=== PATIENT | female | born 1995 | race Caucasian/White ===

== ENCOUNTER 2018-10-24 17:51 | Emergency (ER) | payer SELFPAY ==
--- NOTE | 2018-10-24 18:35 | ER Document Report ---
ED Medical Screen (RME) - General Chief Complaint: Vaginal Bleeding Stated Complaint: VAGINAL BLEEDING/CRAMPING Time Seen by Provider: 10/24/18 18:32 Mode of Arrival: Ambulatory Information source: Patient Notes: This is a 22-year-old female with no significant medical problems, 1 para 0 presents to the emergency room with vaginal bleeding and some cramping. - HPI Onset: Yesterday Onset/Duration: Gradual Quality of pain: Cramping Severity: Mild Pain Level: Denies Associated Symptoms: denies: Chest pain, Shortness of breath Exacerbated by: Denies Relieved by: Denies Similar symptoms previously: No Recently seen / treated by doctor: No - Related Data Smoking: Non-smoker Frequency of alcohol use: None Drug Abuse: None Allergies/Adverse Reactions: No Known Allergies Allergy (Unverified 10/24/18 17:53) Past Medical History - General Information source: Patient - Social History Cigarette use (# per day): No Chew tobacco use (# tins/day): No Frequency of alcohol use: None Drug Abuse: None Lives with: Family Family history: None - Medical History Medical History: Negative Renal/ Medical History: Denies: Hx Peritoneal Dialysis Surgical Hx: Negative Review of Systems - Review of Systems Constitutional: denies: Chills, Fever EENT: No symptoms reported Cardiovascular: No symptoms reported Respiratory: No symptoms reported Gastrointestinal: No symptoms reported Genitourinary: No symptoms reported Female Genitourinary: See HPI Musculoskeletal: No symptoms reported Skin: No symptoms reported Hematologic/Lymphatic: No symptoms reported Neurological/Psychological: No symptoms reported Physical Exam - Vital signs Vitals: Temp Pulse Resp BP Pulse Ox 99.1 F 86 16 125/60 97 10/24/18 18:07 10/24/18 18:07 10/24/18 18:07 10/24/18 18:07 10/24/18 18:07 Notes: Physical exam: GENERAL: 22-year-old female, alert and oriented x3, no acute distress HEAD: Atraumatic, normocephalic. EYES: Pupils equal round and reactive to light, extraocular movements intact, sclera anicteric, conjunctiva are normal. ENT: Moist mucous membranes. NECK: Normal range of motion, supple without obvious mass or JVD. LUNGS: Breath sounds clear to auscultation bilaterally and equal. No wheezes rales or rhonchi. HEART: Regular rate and rhythm without murmurs, rubs or gallops. ABDOMEN: Soft, normoactive bowel sounds. No tenderness to palpation. No guarding, no rebound. No masses appreciated. Pelvic: Deferred (patient getting transvaginal ultrasound). EXTREMITIES: Normal range of motion, no pitting or edema. No clubbing or cyanosis. NEUROLOGICAL: Cranial nerves II through XII grossly intact. Normal speech, moving all extremities. PSYCH: Normal mood, normal affect. SKIN: Warm, Dry, normal turgor, no rashes or lesions noted. Course - Vital Signs Vital signs: Temp Pulse Resp BP Pulse Ox 99.1 F 86 16 125/60 97 10/24/18 18:07 10/24/18 18:07 10/24/18 18:07 10/24/18 18:07 10/24/18 18:07 - Laboratory Laboratory results interpreted by me: 10/24/18 18:44 Urine Ketones TRACE H Urine Blood LARGE H - Diagnostic Test Radiology reviewed: Image reviewed, Reports reviewed - Ultrasound shows a living intrauterine : 6 weeks, 2 days old. The heartbeat is 107. The cervix is closed. Doctor's Discharge - Discharge Clinical Impression: Vaginal bleeding in early Condition: Stable Disposition: HOME, SELF-CARE Instructions: Bleeding During Early ([facility]) Additional Instructions: As we discussed, the ultrasound shows an intrauterine live : The baby's heartbeat was 107. Given that you have had some vaginal bleeding, we often call this a threatened miscarriage. For this reason, I want you to take it easy over the next week or 2. Avoid heavy lifting, avoid intercourse. Its important to follow-up with your OB doctor: You can bring a copy of today's ultrasound report as well as the lab tests with you. Your blood type today was O+. Return to the emergency room for worsening cramping, worsening bleeding or any concerns or getting worse.
--- NOTE | 2018-10-24 19:42 | RADIOLOGY REPORT (SQ) ---
EXAM DESCRIPTION: U/S OB TRANSVAGINAL W/O DOP COMPLETED DATE/TIME: 10/24/2018 7:27 pm REASON FOR STUDY: approx 6 weeks preg, vag bleed COMPARISON: None. TECHNIQUE: Transvaginal static and realtime grayscale images acquired of the pelvis. Additional danny cted spectral and color Doppler images recorded. All images stored on PACs. bHCG: Pending. CLINICAL DATES: 6 weeks 1 day LIMITATIONS: None. FINDINGS: FETUS: Single Living intrauterine . ULTRASOUND EGA: 6 weeks 2 days ULTRASOUND VALERIA: 06/17/2019 EFW: Not applicable less than 20 weeks. CRL: 5 mm FHR: 107 beats per minute. AMNIOTIC FLUID: Adequate amount. PLACENTA: Not yet developed due to early gestation. SUBCHORIONIC BLEED: No. SIZE OF BLEED: Not applicable. UTERUS: No masses. No anomalies. CERVICAL LENGTH: 3.1 cm Closed. RIGHT ADNEXA: Normal ovary with normal vascular flow. No adnexal free fluid. No adnexal masses. LEFT ADNEXA: Normal ovary with normal vascular flow. No adnexal free fluid. No adnexal masses. FREE FLUID: None. OTHER: No other significant finding. IMPRESSION: LIVING INTRAUTERINE . EGA 6 weeks 2 days Trimester of : First - 0 to 13 weeks. TECHNICAL DOCUMENTATION: JOB ID: [id number] [place]-72 2010 [employer]- All Rights Reserved Reading location - IP/workstation name: [email or web address]
[2018-10-24 19:50] LABS: APPEARANCE,URINE SLIGHTLY-CLOUDY; BILIRUBIN,URINE NEGATIVE (NEGATIVE); COLOR,URINE STRAW; GLUCOSE, URINE NEGATIVE (NEGATIVE); KETONES,URINE TRACE mg/dL (NEGATIVE); LEUKOCYTE ESTERASE,URINE NEGATIVE (NEGATIVE); NITRITE,URINE NEGATIVE (NEGATIVE); PROTEIN,URINE NEGATIVE (NEGATIVE); URINE SPECIFIC GRAVITY 1.012; UROBILINOGEN,URINE NEGATIVE mg/dL (<2.0)
[2018-10-24 20:37] VITALS: BP 106/85
== END 2018-10-24 20:37 | disposition home or self-care (01) ==
LOC: ER 17:51
DX: O46.91 Antepartum hemorrhage, unspecified, first trimester (principal); O26.891 Other specified pregnancy related conditions, first trimester; R10.9 Unspecified abdominal pain; Z3A.01 Less than 8 weeks gestation of pregnancy
CPT/HCPCS: 36415; 76817; 81001; 84702; 86900; 86901; 87086; 99284

== ENCOUNTER 2018-12-03 11:44 | Emergency (ER) | payer OTHER, MEDICAID ==
--- NOTE | 2018-12-03 12:31 | ER Document Report ---
ED General - General Chief Complaint: Vaginal Bleeding Stated Complaint: VAGINAL BLEEDING Time Seen by Provider: 12/03/18 12:25 TRAVEL OUTSIDE OF THE [place] IN LAST 30 DAYS: No - HPI Notes: Patient is a 23-year-old female approximately 11-1/2 weeks who presents to the emergency department complaining of intermittent pelvic cramping and vaginal bleeding over the past 2 days. She is still eating and drinking without difficultly. She is urinating normally and having normal bowel movements. Denies drug allergies. No surgical history to her abdomen. No other vaginal discharge or odor. No concern of STD or STI. No other concerns or complaints. Denies any headache, fever, URI, sore throat, chest pain, palpitations, syncope, cough, shortness of breath, wheeze, dyspnea, nausea/vomit ing/diarrhea, urinary retention, dysuria, hematuria, back pain, or rash. - Related Data Allergies/Adverse Reactions: No Known Allergies Allergy (Verified 12/03/18 11:45) Past Medical History - Social History Smoking Status: Never Smoker Family History: Reviewed & Not Pertinent Renal/ Medical History: Denies: Hx Peritoneal Dialysis Review of Systems - Review of Systems -: Yes All other systems reviewed and negative Physical Exam - Vital signs Vitals: Temp Pulse Resp BP Pulse Ox 98.7 F 86 16 127/60 H 98 12/03/18 11:55 12/03/18 11:55 12/03/18 11:55 12/03/18 11:55 12/03/18 11:55 - Notes Notes: PHYSICAL EXAMINATION: GENERAL: Well-appearing, well-nourished and in no acute distress. LUNGS: Breath sounds clear to auscultation bilaterally and equal. No wheezes rales or rhonchi. HEART: Regular rate and rhythm without murmurs, rubs, gallops. ABDOMEN: Soft, nontender, nondistended abdomen. No guarding, no rebound. No masses appreciated. Normal bowel sounds present. No CVA tenderness bilaterally. : Deferred at this time Musculoskeletal: FROM to passive/active. Strength 5+/5. Extremities: No cyanosis, clubbing, or edema b/l. Peripheral pulses 2+. Capillary refill less than 3 seconds. NEUROLOGICAL: Normal speech, normal gait. PSYCH: Normal mood, normal affect. SKIN: Warm, Dry, normal turgor, no rashes or lesions noted. Course - Re-evaluation Re-evalutation: 12/03/18 15:05 Patient is an afebrile, well-hydrated, 23-year-old female who presents to the ED with bleeding in early and subsequent failed as there are no heart tones and her hCG quantitative is significantly decreased from previous. Vitals are acceptable without any significant tachycardia, tachypnea, or hypoxia. PE is otherwise unremarkable. CBC unremarkable. UA unremarkable. Patient does not need RhoGam based on blood bank history at previous visit. Patient is nontoxic-appearing is tolerating p.o. without any difficulties. No other labs or imaging warranted at this time based on H&P. Low suspicion/risk for acute appendicitis, bowel obstruction, acute cholecystitis, acute cholangitis, perforated diverticulitis, incarcerated hernia, pancreatitis, perforated ulcer, peritonitis, sepsis, pelvic inflammatory disease, ectopic , tubo-ovarian abscess, ovarian torsion, or other systemic emergent condition at this time. Patient is aware that her condition can change from initial presentation and she needs to monitor symptoms closely and seek medical attention if any acute changes. Recheck with your PCM/OBGYN in 3-5 days. Return to the ED with any worsening/concerning symptoms otherwise as reviewed in discharge. Patient is in agreement. - Vital Signs Vital signs: Temp Pulse Resp BP Pulse Ox 98.7 F 86 16 127/60 H 98 12/03/18 11:55 12/03/18 11:55 12/03/18 11:55 12/03/18 11:55 12/03/18 11:55 - Laboratory Result Diagrams: 12/03/18 13:02 Laboratory results interpreted by me: 12/03/18 12/03/18 12:15 13:02 Beta HCG, Quant 7881.60 H Urine Blood LARGE H Discharge - Discharge Clinical Impression: demise Condition: Stable Disposition: HOME, SELF-CARE Additional Instructions: Maintain fluid intake Proper hygienic technique Keep the skin clean Tylenol/ibuprofen as needed F/u with your PCM/OBGYN in 3-5 days for a recheck Return to the ED with any development of GOWDIN/fever, trouble with vision, eye redness, worsening pain, urethral discharge, urinary retention, blood in the urine, flank pain, abdominal pain, n/v, Chest Pain, shortness of breath, joint pains, trouble breathing, or any other worsening/concerning symptoms as needed otherwise. Forms: Elevated Blood Pressure Referrals: [facility] [Provider Group] - Follow up in 3-5 days
[2018-12-03 13:21] LABS: ABSOLUTE EOSINOPHILS # (AUTO) 0.1 10^3/uL (0.0-0.6); ABSOLUTE LYMPHOCYTES (AUTO) 2.1 10^3/uL (0.5-4.7); ABSOLUTE MONOCYTES (AUTO) 0.5 10^3/uL (0.1-1.4); BASOPHILS % (AUTO) 0.5 % (0-2); EOSINOPHILS % (AUTO) 1.7 % (0-6); HEMATOCRIT 36.8 % (36.0-47.0); HEMOGLOBIN 12.8 g/dL (12.0-15.5); LYMPHOCYTES % (AUTO) 26.9 % (13-45); MEAN CORPUSCULAR HEMOGLOBIN 29.6 pg (27.0-33.4); MEAN CORPUSCULAR HGB CONC 34.9 g/dL (32.0-36.0); MEAN CORPUSCULAR VOLUME 85 fl (80-97); MONOCYTES % (AUTO) 6.6 % (3-13); PLATELET COUNT 302 10^3/uL (150-450); RED BLOOD COUNT 4.34 10^6/uL (3.72-5.28); RED CELL DISTRIBUTION WIDTH 13.1 % (11.5-14.0); SEGMENTED NEUTROPHILS % (AUTO) 64.3 % (42-78); TOTAL CELLS COUNTED % (AUTO) 100 %; WHITE BLOOD COUNT 7.8 10^3/uL (4.0-10.5)
[2018-12-03 13:26] LABS: APPEARANCE,URINE SLIGHTLY-CLOUDY; BILIRUBIN,URINE NEGATIVE (NEGATIVE); COLOR,URINE YELLOW; GLUCOSE, URINE NEGATIVE (NEGATIVE); KETONES,URINE NEGATIVE (NEGATIVE); LEUKOCYTE ESTERASE,URINE NEGATIVE (NEGATIVE); NITRITE,URINE NEGATIVE (NEGATIVE); PROTEIN,URINE NEGATIVE (NEGATIVE); URINE SPECIFIC GRAVITY 1.017; UROBILINOGEN,URINE NEGATIVE mg/dL (<2.0)
--- NOTE | 2018-12-03 14:51 | RADIOLOGY REPORT (SQ) ---
EXAM DESCRIPTION: U/S OB TRANSVAGINAL W/O DOP COMPLETED DATE/TIME: 12/03/2018 2:35 pm REASON FOR STUDY: 12wks preg, bleeding/cramping COMPARISON: 10/24/2018 TECHNIQUE: Transvaginal and transabdominal static and realtime grayscale images acquired of the pelv is. Additional selected spectral and color Doppler images recorded. All images stored on PACs. [facility] [place] CLINICAL DATES: 11 weeks, 6 days LIMITATIONS: None. FINDINGS: FETUS: Single Living intrauterine . ULTRASOUND EGA: 6 weeks, 4 days ULTRASOUND VALERIA: 07/21/2019 CRL: 0.68 cm FHR: Not visualized. SUBCHORIONIC BLEED: Small subchorionic hemorrhage measuring 1.3 x 0.7 x 1.5 cm. UTERUS: No masses. No anomalies. CERVICAL LENGTH: 2.0 cm. Fluid is present in the endocervical canal. RIGHT ADNEXA: Normal ovary with normal vascular flow. No adnexal free fluid. No adnexal masses. LEFT ADNEXA: Normal ovary with normal vascular flow. No adnexal free fluid. No adnexal masses. FREE FLUID: None. OTHER: No other significant finding. IMPRESSION: Single intrauterine gestation at sonographic gestational age of 6 weeks, 4 days, without heart tones identified. heart tones were identified on prior examination dated 10/24/2018 . Findings consistent with failed early . Trimester of : First - 0 to 13 weeks. TECHNICAL DOCUMENTATION: JOB ID: [id number] [employer]- All Rights Reserved rev Reading location - IP/workstation name: [email or web address]
[2018-12-03 15:10] VITALS: BP 128/78
== END 2018-12-03 15:25 | disposition home or self-care (01) ==
LOC: ER 11:44
DX: O36.4XX0 Maternal care for intrauterine death, not applicable or unspecified (principal); Z3A.11 11 weeks gestation of pregnancy
CPT/HCPCS: 36415; 76817; 81001; 84702; 85025; 99284

== ENCOUNTER 2018-12-06 03:16 | Emergency (ER) | payer OTHER, MEDICAID ==
[2018-12-06] MEDS ORDERED: NORMAL SALINE 1000 ML 1,000 ML IV PRN (04:32)
[2018-12-06] MEDS ORDERED: DICYCLOMINE HCL INJ 20 MG/2 ML AMPULE IM ONE (04:34)
--- NOTE | 2018-12-06 05:47 | RADIOLOGY REPORT (SQ) ---
EXAM DESCRIPTION: US TRANSVAGINAL COMPLETED DATE/TME: 12/06/2018 04:31 CLINICAL HISTORY: 23 years, Female, retained products of conception COMPARISON: None. TECHNIQUE: Transverse and longitudinal transvaginal sonographic images of the pelvis LIMITATIONS: None. FINDINGS: The uterus measures 10.2 x 5.1 x 6.0 cm. Endometrium measures 17 mm in thickness with a complex appearance. There is fluid and what is likely blood products in the endocervical canal. The right ovary measures 2 x 2 x 2 cm, the left 2 x 1 x 2 cm. Arterial and venous flow to each ovary. No adnexal cyst or mass. No free fluid. IMPRESSION: Mild distention of the endocervical canal with fluid and debris, likely blood products within it. Retained products of conception not excluded copyright 2010 [email or web address]- All Rights Reserved
[2018-12-06] MEDS ORDERED: KETOROLAC TROMETHAMINE INJ/PF 30 MG/1 ML SDV IV ONE (06:02)
[2018-12-06] MEDS: NORMAL SALINE 1000 ML 1,000 ML IV PRN ×2 (06:05→06:50)
[2018-12-06 06:16] LABS: ABSOLUTE BASOPHILS # (AUTO) 0.1 10^3/uL (0.0-0.2); ABSOLUTE EOSINOPHILS # (AUTO) 0.1 10^3/uL (0.0-0.6); ABSOLUTE LYMPHOCYTES (AUTO) 1.6 10^3/uL (0.5-4.7); ABSOLUTE MONOCYTES (AUTO) 0.6 10^3/uL (0.1-1.4); ABSOLUTE NEUT (AUTO) 10.5 10^3/uL (1.7-8.2); BASOPHILS % (AUTO) 0.5 % (0-2); HEMOGLOBIN 11.8 g/dL (12.0-15.5); LYMPHOCYTES % (AUTO) 12.7 % (13-45); MEAN CORPUSCULAR HEMOGLOBIN 29.5 pg (27.0-33.4); MEAN CORPUSCULAR HGB CONC 34.9 g/dL (32.0-36.0); MEAN CORPUSCULAR VOLUME 85 fl (80-97); MONOCYTES % (AUTO) 4.6 % (3-13); PLATELET COUNT 280 10^3/uL (150-450); RED BLOOD COUNT 4.01 10^6/uL (3.72-5.28); RED CELL DISTRIBUTION WIDTH 12.7 % (11.5-14.0); SEGMENTED NEUTROPHILS % (AUTO) 81.2 % (42-78); TOTAL CELLS COUNTED % (AUTO) 100 %; WHITE BLOOD COUNT 12.9 10^3/uL (4.0-10.5)
--- NOTE | 2018-12-06 06:21 | ER Document Report ---
ED GI/ - General Chief Complaint: OB Problem (<20wks) Stated Complaint: VAGINAL PROBLEM Time Seen by Provider: 12/06/18 04:30 Mode of Arrival: Ambulatory Information source: Patient Notes: Patient is a 23-year-old female who comes back to the emergency room complaining of dysfunctional uterine bleeding. Patient states that she was seen here on 03 December had an ultrasound that showed that she may be miscarrying. She was at approximately 6 weeks 4 days at that time. She had had some bleeding on that visit or prior to that visit which prompted the ABO Rh work-up. Patient ends up being O+. Patient had a relatively decent day on the and then later in the morning on Saturday the they woke up around 10 AM and patient started bleeding. She is gone through approximately 10 pads in less than 24 hours. She states that sometimes she is wearing to open. Patient is back in today because she feels like she is getting slightly lightheaded and a little dizzy when she gets up to move around. She knows that she is miscarrying. TRAVEL OUTSIDE OF THE [place] IN LAST 30 DAYS: No - HPI Patient complains to provider of: Pelvic pain, , Vaginal bleeding Onset: Yesterday Timing/Duration: Gradual, Persistent, Worse Quality of pain: Cramping Severity at maximum: Severe Severity in ED: Severe Pain Level: 4 Context: Location: Suprapubic, Pelvis, Vaginal Vaginal bleeding (Compared to normal period): Severe, Passing clots, Passing tissue : 1 OB ultrasound done: Yes vitamins taken: Yes Sexual history: Active Exacerbated by: Denies Relieved by: Denies Similar symptoms previously: Yes Recently seen / treated by doctor: Yes - Related Data Allergies/Adverse Reactions: No Known Allergies Allergy (Verified 12/03/18 11:45) Past Medical History - General Information source: Patient, Relative - Social History Smoking Status: Never Smoker Cigarette use (# per day): No Chew tobacco use (# tins/day): No Smoking Education Provided: No Frequency of alcohol use: None Drug Abuse: None Lives with: Family, Spouse/Significant other Family History: Reviewed & Not Pertinent Renal/ Medical History: Denies: Hx Peritoneal Dialysis Review of Systems - Review of Systems Constitutional: No symptoms reported EENT: No symptoms reported Cardiovascular: No symptoms reported Respiratory: No symptoms reported Gastrointestinal: No symptoms reported Genitourinary: No symptoms reported Female Genitourinary: See HPI, , Vaginal bleeding Musculoskeletal: No symptoms reported Skin: No symptoms reported Hematologic/Lymphatic: No symptoms reported Neurological/Psychological: No symptoms reported -: Yes All other systems reviewed and negative Physical Exam - Vital signs Vitals: Temp Pulse Resp BP Pulse Ox 98.3 F 106 H 20 131/85 H 97 12/06/18 03:25 12/06/18 03:25 12/06/18 03:25 12/06/18 03:25 12/06/18 03:25 Interpretation: Hypertensive, Tachycardic - Notes Notes: PHYSICAL EXAMINATION: GENERAL: Patient is a well-nourished well-developed 23-year-old female distress on physical exam this morning however she is in the does appear to be in moderate amount of discomfort. Her HEAD: Atraumatic, normocephalic. EYES: Pupils equal round and reactive to light, extraocular movements intact, conjunctiva are normal. LUNGS: Breath sounds clear to auscultation bilaterally and equal. No wheezes rales or rhonchi. HEART: Tachycardic rate and rhythm without murmurs ABDOMEN: Abdomen is mildly distended with bowel sounds present all 4 quadrants. It is nontender to palpation with the exception of over the suprapubic/uterine area Female : Pelvic exam shows patient to have normal-appearing external genitalia with the exception of having dried blood around the introitus. Further examination of the vaginal canal shows moderate amount of dark and blood with presentation of the speculum into the vaginal tract there is a large amount of clot that appears to have some products of conception at least mixed in with it. It looks like an expulsion of the embryo. After evacuation of the clot with the appeared to be products of conception patient's bleeding seemed to slow down slightly. And all clots were cleaned out by the time we finished the speculum exam. The loss was as expected open and blood was flowing from that area. It was down to a small trickle at the end of our examination. Patient had some mild tenderness during the pelvic exam. Musculoskeletal: Normal range of motion, no pitting or edema. No cyanosis. NEUROLOGICAL: Normal speech, normal gait. Normal sensory, motor exams PSYCH: Normal mood, normal affect. SKIN: Warm, Dry, normal turgor, no rashes or lesions noted. Course - Re-evaluation Re-evalutation: 12/06/18 07:10 Pelvic exam as stated earlier showed that there was probably some products of conception that had come out. Once we pulled the clots out patient's bleeding seemed to subside quite a bit. She received the Toradol and that all so seem to help with her discomfort pain and her cramping. At this point I think it safe to let patient go home health warned her if she continues to bleed heavily to come back within 24 hours sooner and if she is subsiding and the pain is going away and the bleeding stops she just needs to follow-up with that she might and have them confirm everything is back to where it should be. Patient is morning of a believed to understand when she needs to come back. So at this point I think we are safe to let patient go home. - Vital Signs Vital signs: Temp Pulse Resp BP Pulse Ox 98.3 F 106 H 20 131/85 H 97 12/06/18 03:25 12/06/18 03:25 12/06/18 03:25 12/06/18 03:25 12/06/18 03:25 - Laboratory Result Diagrams: 12/06/18 05:50 12/06/18 05:50 Laboratory results interpreted by me: 12/06/18 05:50 WBC 12.9 H Hgb 11.8 L Hct 34.0 L Seg Neutrophils % 81.2 H Lymphocytes % 12.7 L Absolute Neutrophils 10.5 H Discharge - Discharge Clinical Impression: Spontaneous , demise Condition: Good Disposition: HOME, SELF-CARE Instructions: Miscarriage ([facility]) Additional Instructions: As we discussed it looks as if you completely passing any products of conception there were. You should start subsiding your bleeding over the next 24 to 48 hours, considerably. However if you continue to go through several pads in the next 24hours and you start to feel lightheaded or your heart feels like it is racing or you have any concerns you need to return to ER for recheck. If everything is going accordingly you feeling better and the heart rates going down you not lightheaded and your cramping is subsided then you need to follow- up with a motor analyst for a pelvic exam and to make sure everything else is back to where it is supposed to be at baseline. If you have any concerns or return to emergency room. Forms: Elevated Blood Pressure
[2018-12-06 06:49] LABS: ALANINE AMINOTRANSFERASE 24 U/L (9-52); ALBUMIN 4.1 g/dL (3.5-5.0); ALKALINE PHOSPHATASE 64 U/L (38-126); ANION GAP 9 (5-19); ASPARTATE AMINO TRANSFERASE 18 U/L (14-36); BILIRUBIN,DIRECT 0.2 mg/dL (0.0-0.4); BILIRUBIN,TOTAL 0.3 mg/dL (0.2-1.3); BLOOD UREA NITROGEN 11 mg/dL (7-20); CALCIUM 9.1 mg/dL (8.4-10.2); CARBON DIOXIDE 23 mmol/L (22-30); CHLORIDE 106 mmol/L (98-107); GLUCOSE 99 mg/dL (75-110); POTASSIUM 3.7 mmol/L (3.6-5.0); TOTAL PROTEIN 7.3 g/dL (6.3-8.2)
[2018-12-06 07:39] VITALS: BP 115/58
== END 2018-12-06 07:54 | disposition home or self-care (01) ==
LOC: ER 03:16
DX: O03.9 Complete or unspecified spontaneous abortion without complication (principal); R10.2 Pelvic and perineal pain; R42 Dizziness and giddiness; R00.0 Tachycardia, unspecified
CPT/HCPCS: 99284; 36415; 84702; 85025; 80053; 88305 ×2; 76830; 93976; J1885; J7030

== ENCOUNTER → 2020-02-24 | Outpatient (CLI) | payer OTHER ==
[2020-02-24 13:11] VITALS: BP 117/57
--- NOTE | 2020-02-24 13:11 | ER RDC ASSESSMENT REPORT ---
Intake - In the Last 14 days Have you traveled outside [place]?: No Have you been in close contact with someone CONFIRMED: No Worked in Healthcare?: Yes - Symptoms Subjective Fever([place] feverish): Yes Chills: No Muscule Aches: Yes Runny Nose: Yes Sore Throat: No Cough (New or worsening chronic cough): Yes Shortness of breath: Yes Nausea or Vomiting: No Headache: Yes Abdominal Pain: No Diarrhea(3 or more loose stools in last 24 hours): No - Do you have any of the following Chronic lung disease: Asthma or emphysema or COPD: Yes Chronic Lung Disease Comment: asthma Cystic Fibrosis: No Diabetes: No High Blood Pressure: No Cardiovascular Disease: No Chronic Kidney Disease: No Chronic Liver Disease: No Chronic blood disorder like Sickle Cell Disease: No Weak immune system due to disease or medication: No Neurologic condition that limits movement: No Developmental delay - Moderate to Severe: No Recent (within past 2 weeks) or current : Yes --If current: Trimester: 2nd Comment: 22 weeks, 4 days Morbid Obesity (>100 pounds over ideal weight): No - Objective Vital Signs: 5'4", 142 lb Temperature: 97.4 F Pulse Rate: 95 Respiratory Rate: 18 Blood Pressure: 117/57 O2 Sat by Pulse Oximetry: 96 Objective: Given above, testing performed: flu, covid Disposition: Home; Selfcare General - General Chief Complaint: Flu Symptoms Time Seen by Provider: 02/24/20 12:07 Mode of Arrival: Ambulatory Information source: Patient - HPI Notes: 24-year-old female presents to [facility] clinic for COVID-19 testing. Patient is currently 22-1/2 weeks with first child. She has a medical history significant for asthma only. Patient reports onset of symptoms 02/19/2020. Patient states she was experiencing subjective fever, muscle aches, rhinorrhea, sore throat, cough, shortness of breath with exertion, and headache over the weekend. Patient states all the symptoms have now resolved with the exception of the dry cough. Patient denies any chills, nausea, vomiting, abdominal pain or diarrhea. - Related Data Allergies/Adverse Reactions: No Known Allergies Allergy (Verified 12/03/18 11:45) Past Medical History - General Information source: Patient - Social History Smoking Status: Never Smoker Family History: Reviewed & Not Pertinent - Past Medical History Cardiac Medical History: Reports: None Pulmonary Medical History: Reports: Hx Asthma EENT Medical History: Reports: None Neurological Medical History: Reports: None Endocrine Medical History: Reports: None Renal/ Medical History: Reports: None. Denies: Hx Peritoneal Dialysis Malignancy Medical History: Reports: None GI Medical History: Reports: None Musculoskeletal Medical History: Reports None Skin Medical History: Reports None Psychiatric Medical History: Reports: None Traumatic Medical History: Reports: None Infectious Medical History: Reports: None Past Surgical History: Reports: None Physical Exam - General General appearance: Appears well, Alert In distress: None Notes: PHYSICAL EXAMINATION: GENERAL: Well-appearing and in no acute distress. HEAD: Atraumatic, normocephalic. EYES: sclera anicteric, conjunctiva are normal. ENT: nares patent. Moist mucous membranes. NECK: Normal range of motion, supple without lymphadenopathy LUNGS: CTAB and equal. No wheezes rales or rhonchi. HEART: Regular rate and rhythm without murmurs ABDOMEN: Soft, nontender, normal bowel sounds, no guarding. Gravid abdomen. EXTREMITIES: Normal range of motion, no pitting edema. No cyanosis. NEUROLOGICAL: Cranial nerves grossly intact. Normal speech. PSYCH: Normal mood, normal affect. SKIN: Warm, Dry, normal turgor, no rashes or lesions noted Patient Education/Counseling Counseling/Education: Patient presents with upper respiratory symptoms worrisome for possible Covid 19. Patient does not have emergency worrying symptoms such as difficulty breathing, shortness of breath, chest pain, pressure, confusion or cyanosis. Patient appears suitable for discharge as vital signs are stable and patient is nontoxic in appearance. Good return precautions have been discussed with patient, patient verbalized understanding and is agreeable with discharge plan of care at this time. Guidance for worsening S/SX: As a person under investigation for Covid 19, the [place] department of Health and Human Services, division of public health advises you to adhere to the following guidance until your test results are reported to you. If your test result is positive, you will receive additional information from your provider and your local health department at that time. Remain at home until you are cleared by the health provider or public health authorities. Keep a log of visitors to your home, notify any visitors to your home of your isolation status. If you plan to move to a new address or leave the county, notify the local health department in your County. Call your doctor or seek care if you have an urgent medical need. Before seeking medical care, call ahead to get instructions from the provider before arriving at the medical office clinic or hospital. Notify them that you are being tested for the virus that causes Covid 19 so that arrangements can be made, as necessary, to prevent transmission to others in the healthcare setting. Next, notify the local health department in your county. If a medical emergency arises and you need to call 911, inform the first responders that you are being tested for the virus that causes Covid 19. Next, notify the local health department in your county. RDC Discharge - Discharge Clinical Impression: Encounter for screening laboratory testing for COVID-19 virus, Cough Condition: Good Disposition: Home; Selfcare
[2020-02-24 13:57] LABS: A TYPE INFLUENZA AG NEGATIVE (NEGATIVE); B INFLUENZA AG NEGATIVE (NEGATIVE)
== END ==
LOC: RDC 11:47
PROVIDERS: ATTEND Registered Nurse
DX: O99.512 Diseases of the respiratory system complicating pregnancy, second trimester (principal); J45.909 Unspecified asthma, uncomplicated; Z20.828 Contact with and (suspected) exposure to other viral communicable diseases; R05 Cough; J34.89 Other specified disorders of nose and nasal sinuses; R50.9 Fever, unspecified; R06.02 Shortness of breath; R09.89 Other specified symptoms and signs involving the circulatory and respiratory systems; M79.10 Myalgia, unspecified site; R51 Headache; Z3A.22 22 weeks gestation of pregnancy
CPT/HCPCS: 87635; 87804; C9803

== ENCOUNTER 2020-05-26 11:56 | Outpatient (CLI) | payer OTHER ==
--- NOTE | 2020-05-26 12:35 | Non Stress Test Report ---
Non Stress Test Datetime Report Generated by CPN: 05/26/2020 12:35 DEMOGRAPHIC EGA NST: 35.5 VITAL SIGNS Temperature - NST: 98.1 Pulse - NST: 75 RESP - NST: 16 NBPSYS NST: 121 NBPDIA NST: 57 MONITORING Monitor Explained: Monitor Explained; Test Explained; Patient Verbalized Understanding Time on Monitor: 05/26/2020 12:06 Time off Monitor: 05/26/2020 12:32 NST Duration: 26 NST INTERVENTIONS NST Interventions: PO Hydration Physician Notified NST: PJessi, CNM BABY A: [id number] BABY A Movement : Present Contraction Frequency : None FHR Baseline : 145 Accelerations : 15X15 Decelerations : None Variability : Moderate 6-25bpm NST Review: Meets Criteria for Reactive NST NST Review and Verified By : RICK Sepulveda NST Results: Reactive NST REPORT Report Trigger: Send Report
== END 2020-05-26 12:41 | disposition home or self-care (01) ==
LOC: LC 11:56
PROVIDERS: ATTEND Obstetrics & Gynecology
DX: O24.410 Gestational diabetes mellitus in pregnancy, diet controlled (principal); Z3A.35 35 weeks gestation of pregnancy

== ENCOUNTER 2020-06-09 16:17 | Outpatient (CLI) | payer OTHER ==
--- NOTE | 2020-06-09 17:14 | Non Stress Test Report ---
Non Stress Test Datetime Report Generated by CPN: 06/09/2020 17:14 DEMOGRAPHIC Test Number: 2 EGA NST: 37.5 INDICATION Indication for Study (NST) Other: non reactive in office VITAL SIGNS Temperature - NST: 98.2 Pulse - NST: 90 RESP - NST: 16 NBPSYS NST: 122 NBPDIA NST: 59 MONITORING Monitor Explained: Monitor Explained; Test Explained; Patient Verbalized Understanding Time on Monitor: 06/09/2020 16:40 Time off Monitor: 06/09/2020 17:05 NST Duration: 25 NST INTERVENTIONS NST Interventions: PO Hydration; Reposition Patient Physician Notified NST: Dr Jarrod BABY A: [id number] BABY A Movement : Present Contraction Frequency : irregular FHR Baseline : 140 Accelerations : 15X15 Decelerations : None Variability : Moderate 6-25bpm NST Review: Meets Criteria for Reactive NST NST Review and Verified By : Maday Camp RNC NST Results: Reactive NST REPORT Report Trigger: Send Report
== END 2020-06-09 17:05 | disposition home or self-care (01) ==
LOC: LC 16:17
PROVIDERS: ATTEND Obstetrics & Gynecology
DX: O40.3XX0 Polyhydramnios, third trimester, not applicable or unspecified (principal); Z3A.37 37 weeks gestation of pregnancy
CPT/HCPCS: 59025

== ENCOUNTER 2020-06-14 21:17 | Inpatient (IN) | payer OTHER ==
[2020-06-14 21:47] LABS: APPEARANCE,URINE SLIGHTLY-CLOUDY; BILIRUBIN,URINE NEGATIVE (NEGATIVE); COLOR,URINE YELLOW; GLUCOSE, URINE NEGATIVE (NEGATIVE); KETONES,URINE NEGATIVE (NEGATIVE); LEUKOCYTE ESTERASE,URINE TRACE (NEGATIVE); NITRITE,URINE NEGATIVE (NEGATIVE); PROTEIN,URINE >=500 mg/dL (NEGATIVE); URINE SPECIFIC GRAVITY 1.013; UROBILINOGEN,URINE NEGATIVE mg/dL (<2.0)
[2020-06-14 22:07] LABS: URINE AMPHETAMINES SCREEN NEGATIVE; URINE BARBITURATES SCREEN NEGATIVE; URINE BENZODIAZEPINES SCREEN NEGATIVE; URINE COCAINE SCREEN NEGATIVE; URINE MARIJUANA (THC) SCREEN NEGATIVE; URINE METHADONE SCREEN NEGATIVE; URINE PHENCYCLIDINE SCREEN NEGATIVE
[2020-06-14 22:33] LABS: ABSOLUTE LYMPHOCYTES (AUTO) 1.9 10^3/uL (0.5-4.7); ABSOLUTE MONOCYTES (AUTO) 0.6 10^3/uL (0.1-1.4); ABSOLUTE NEUT (AUTO) 7.3 10^3/uL (1.7-8.2); BASOPHILS % (AUTO) 0.3 % (0-2); EOSINOPHILS % (AUTO) 0.2 % (0-6); HEMATOCRIT 32.5 % (36.0-47.0); HEMOGLOBIN 11.3 g/dL (12.0-15.5); LYMPHOCYTES % (AUTO) 19.4 % (13-45); MEAN CORPUSCULAR HEMOGLOBIN 29.5 pg (27.0-33.4); MEAN CORPUSCULAR HGB CONC 34.7 g/dL (32.0-36.0); MEAN CORPUSCULAR VOLUME 85 fl (80-97); MONOCYTES % (AUTO) 6.3 % (3-13); PLATELET COUNT 196 10^3/uL (150-450); RED BLOOD COUNT 3.83 10^6/uL (3.72-5.28); RED CELL DISTRIBUTION WIDTH 14.9 % (11.5-14.0); SEGMENTED NEUTROPHILS % (AUTO) 73.8 % (42-78); TOTAL CELLS COUNTED % (AUTO) 100 %
[2020-06-14 22:44] LABS: ALBUMIN 3.3 g/dL (3.5-5.0); ALKALINE PHOSPHATASE 113 U/L (38-126); ANION GAP 10 (5-19); ASPARTATE AMINO TRANSFERASE 20 U/L (14-36); BILIRUBIN,DIRECT 0.1 mg/dL (0.0-0.4); BILIRUBIN,TOTAL 0.2 mg/dL (0.2-1.3); BLOOD UREA NITROGEN 10 mg/dL (7-20); CALCIUM 9.3 mg/dL (8.4-10.2); CARBON DIOXIDE 20 mmol/L (22-30); CHLORIDE 106 mmol/L (98-107); GLUCOSE 118 mg/dL (75-110); POTASSIUM 3.9 mmol/L (3.6-5.0); URIC ACID 5.4 mg/dL (2.5-6.2)
[2020-06-14 22:55] LABS: URINE CREATININE 87.8 mg/dL (16-327)
[2020-06-15 00:21] LABS: UR PRO/CREAT RATIO RESULT 6.2 mg/mg (0.0-0.2); URINE PROTEIN 540.8 mg/dL (<12)
[2020-06-15] MEDS ORDERED: RINGERS SOLUTION,LACTATED 1,000 ML IV ONE (00:39)
[2020-06-15] MEDS ORDERED: DINOPROSTONE 10 MG VAGINAL INSERT.SR PV ONE (00:53)
[2020-06-15] MEDS ORDERED: DINOPROSTONE 10 MG VAGINAL INSERT.SR ONE (01:30)
[2020-06-15] MEDS: RINGERS SOLUTION,LACTATED 1,000 ML IV PRN ×2 (01:33→10:50)
--- NOTE | 2020-06-15 02:25 | Admission Physical ---
Datetime Report Generated by CPN: 06/15/2020 02:25 CURRENT ADMISSION Chief Complaint: Signs/Symptoms Gestational HTN Indication for Induction: PreEclampsia Admit Impression : Term, Intrauterine Admit Plan: Admit to Unit; Initiate Labor Induction Protocol ALLERGIES Medication Allergies: No Medication Allergies: No Known Allergies (06/09/2020) Latex: No Latex Allergies OBSTETRICAL HISTORY EDC: 06/25/2020 00:00 : 3 Para: 0 Term: 0 : 0 SAB: 2 IAB: 0 Ectopic: 0 Livin Cesareans: 0 VBACs: 0 Multiple Births: 0 Gestational Diabetes: No Rh Sensitization: No Incompetent Cervix: No HAIDER: No Infertility: No ART Treatment: No Uterine Anomaly: No IUGR: No Hx Previous C/S: No Macrosomia: No Hx Loss/Stillborn: No PIH: No Hx : No Placenta Previa/Abruption: No Depression/PP Depression: No PTL/PROM: No Post Hemorrhage: No Current Procedures: Ultrasound Obstetrical History Comments: G1- SAB 12 weeks G2- SAB 4 weeks G3- current SEE RECORDS Alcohol: No Marijuana : No Cocaine: No Other Illicit Drugs: No Cigarettes: Never Smoker. [id number] MEDICAL HISTORY Diabetes: No Blood Transfusion: No Pulmonary Disease (Asthma, TB): Yes Breast Disease: No Hypertension: No Rn Triage Surgery: No Heart Disease: No Hosp/Surgery: No Autoimmune Disorder: No Anesthetic Complications: No Kidney Disease: No Abnormal Pap Smear: No Neuro/Epilepsy: No Psychiatric Disorders: Yes Other Medical Diseases: No Hepatitis/Liver Disease: No Significant Family History: No Varicosities/Phlebitis: No Trauma/Violence : No Thyroid Dysfunction: No Medical History Comments: asthma, depression INFECTIOUS HISTORY Gonorrhea: No Genital Herpes: No Chlamydia: No Tuberculosis: No Syphilis: No Hepatitis: No HIV/AIDS Exposure: No Rash or Viral Illness: No HPV: Yes Infectious History Comments: ASCUS PHYSICAL EXAM General: Normal HEENT: Normal Neurologic: Normal Thyroid: Normal Heart: Normal Lungs: Normal Breast: Deferred Back: Normal Abdomen: Normal Genitourinary Exam: Normal Extremities: Normal DTRs: Normal Pelvic Type: Adequate FETUS A EGA: 38.4 PLANS FOR LABOR AND DELIVERY Labor and Delivery: None Pain Management: Epidural Feeding Preference: Breast Benefit of Breast Feed Discussed: Yes INFORMED CONSENT Signature: with User ID: [email or web address]
[2020-06-15] MEDS ORDERED: OXYTOCIN/0.9 % SODIUM CHLORIDE 30 UNIT/500 ML RTUINJ ONE (08:09)
[2020-06-15] MEDS ORDERED: OXYTOCIN 10 UNIT/ML VIAL ONE (08:09)
[2020-06-15] MEDS ORDERED: MISOPROSTOL 0.2 MG TABLET ONE (08:09)
[2020-06-15] MEDS ORDERED: LIDOCAINE 1% INJ-PF (10 MG/ML) 30 ML SDV ONE (08:09)
[2020-06-15] MEDS ORDERED: PENICILLIN G-K 5 MILLION UNIT VIAL ONE ×2 (08:11→12:18)
--- NOTE | 2020-06-15 08:42 | Warning Signs in Babies ---
VOD Warning Signs Datetime Report Generated by N: 06/15/2020 08:42 VOD#608 -Warning Signs in Babies: Viewed with Parent(s)/Family (06/15/2020 08:41:Tim Munson RN)
[2020-06-15] MEDS ORDERED: PENICILLIN G POTASSIUM 5,000,000 UNIT in DEXTROSE 5%-WATER 100 ML IV ONE (09:02)
[2020-06-15] MEDS ORDERED: SERTRALINE HCL 50 MG TABLET ONE (12:29)
[2020-06-15] MEDS: SERTRALINE HCL 50 MG TABLET PO SCH (12:30)
[2020-06-15] MEDS: PENICILLIN G POTASSIUM 2,500,000 UNIT in DEXTROSE 5%-WATER 50 ML IV SCH ×3 (12:31→21:41)
[2020-06-15] MEDS ORDERED: OXYTOCIN/0.9 % SODIUM CHLORIDE 30 UNIT/500 ML RTUINJ IV PRN (13:26)
[2020-06-15] MEDS: PANTOPRAZOLE SODIUM 20 MG TABLET.DR PO SCH (13:50)
[2020-06-15] MEDS ORDERED: ROPIVACAINE HCL 0.2% INJ/PF (2 MG/ML) 20 ML SDV ONE (20:07)
[2020-06-15] MEDS ORDERED: FENTANYL/BUPIVACAINE/NS/PF 300 MCG/150 ML RTUINJ EPI ONE (20:07)
[2020-06-15] MEDS ORDERED: EPHEDRINE SULFATE INJ 50 MG/1 ML AMPULE ONE (20:07)
[2020-06-16] MEDS: PENICILLIN G POTASSIUM 2,500,000 UNIT in DEXTROSE 5%-WATER 50 ML IV SCH ×2 (01:11→05:11)
[2020-06-16] MEDS ORDERED: PENICILLIN G-K 5 MILLION UNIT VIAL ONE (05:04)
[2020-06-16] MEDS ORDERED: OXYTOCIN/0.9 % SODIUM CHLORIDE 30 UNIT/500 ML RTUINJ IV PRN (09:18)
[2020-06-16] MEDS ORDERED: PSEUDOEPHEDRINE HCL 30 MG TABLET PO PRN (09:18)
[2020-06-16] MEDS ORDERED: ACETAMINOPHEN WITH CODEINE #3 TABLET PO PRN ×2 (09:18)
[2020-06-16] MEDS ORDERED: PROMETHAZINE HCL 25 MG SUPP.RECT PR PRN (09:18)
[2020-06-16] MEDS ORDERED: GLYCERIN/WITCH HAZEL LEAF 1 EACH MED..WIPE TP PRN (09:18)
[2020-06-16] MEDS ORDERED: PROMETHAZINE HCL INJ 25 MG/1 ML VIAL IV PRN (09:18)
[2020-06-16] MEDS ORDERED: DIPHENHYDRAMINE HCL 25 MG CAPSULE PO PRN (09:18)
[2020-06-16] MEDS ORDERED: MAGNESIUM HYDROXIDE SUSP 30 ML UDCUP PO PRN (09:18)
[2020-06-16] MEDS ORDERED: NA PHOS,M-B/NA PHOS,DI-BA (ADULT) 133 ML ENEMA PR PRN (09:18)
[2020-06-16] MEDS ORDERED: DIPH/PERTUSS(ACELL)/TETANUS VAC/PF 0.5 ML SYR (>=10YO) IM PRN (09:18)
[2020-06-16] MEDS ORDERED: PROMETHAZINE HCL 25 MG TABLET PO PRN (09:18)
[2020-06-16] MEDS ORDERED: DIBUCAINE 1% OINTMENT 28 GM TP PRN (09:18)
[2020-06-16] MEDS ORDERED: BENZOCAINE/MENTHOL AEROSOL SPRAY 56 ML TOP PRN (09:18)
[2020-06-16] MEDS ORDERED: ACETAMINOPHEN 650 MG SUPP.RECT PR PRN (09:18)
[2020-06-16] MEDS ORDERED: ZOLPIDEM TARTRATE 5 MG TABLET PO PRN (09:18)
[2020-06-16] MEDS ORDERED: MEASLES,MUMPS&RUBELLA VACC/PF 0.5 ML VIAL SUBCUT PRN (09:18)
[2020-06-16] MEDS ORDERED: BENZOCAINE/MENTHOL AEROSOL SPRAY 56 ML ONE (09:58)
[2020-06-16] MEDS ORDERED: ACETAMINOPHEN 325 MG TABLET ONE (10:22)
[2020-06-16] MEDS ORDERED: SENNOSIDES/DOCUSATE 8.6-50 MG 1 EACH TABLET ONE (10:24)
[2020-06-16] MEDS ORDERED: FERROUS SULFATE 325 MG TABLET PO ONE (10:24)
[2020-06-16] MEDS ORDERED: SERTRALINE HCL 50 MG TABLET ONE (10:24)
[2020-06-16] MEDS ORDERED: PRENATAL VITAMIN W DHA CAPSULE PO ONE (10:24)
[2020-06-16] MEDS ORDERED: DOCUSATE SODIUM 100 MG CAPSULE ONE (10:24)
[2020-06-16] MEDS: PRENATAL VITAMIN W DHA CAPSULE PO SCH (10:26)
[2020-06-16] MEDS: SERTRALINE HCL 50 MG TABLET PO SCH (10:26)
[2020-06-16] MEDS: FERROUS SULFATE 325 MG TABLET PO SCH ×2 (10:26→17:25)
[2020-06-16] MEDS: SENNOSIDES/DOCUSATE 8.6-50 MG 1 EACH TABLET PO SCH (10:26)
[2020-06-16] MEDS: DOCUSATE SODIUM 100 MG CAPSULE PO SCH ×2 (10:26→17:25)
[2020-06-16] MEDS ORDERED: IBUPROFEN 800 MG TABLET ONE (10:31)
[2020-06-16] MEDS ORDERED: FAMOTIDINE 20 MG TABLET ONE (10:31)
[2020-06-16] MEDS: FAMOTIDINE 20 MG TABLET PO SCH ×2 (10:31→22:36)
[2020-06-16] MEDS: IBUPROFEN 800 MG TABLET PO SCH ×2 (10:32→17:25)
--- NOTE | 2020-06-16 12:28 | Delivery Summary ---
Del Sum A-C Datetime Report Generated by CPN: 06/16/2020 12:28 DELIVERY PERSONNEL DELIVERY PERSONNEL: [id number] Nurse Assistance Coordinator Certified:: Ekaterina Keller CNM Labor and Delivery Nurse:: Tim Munson RNsharepoint application developer Nurse:: Solange Jansen RN Nursery Nurse:: Amy Morton RN Student Observers:: SN adeline Nice [facility] CenterStocking Inspector/DEL[place]: Mary Gordillo CNA II MATERNAL INFORMATION Delivery Anesthesia: Epidural Medications After Delivery: Pitocin 30 Units in 500ml NS/D5W Estimated Blood Loss (ml): 200 Delivery QBL: 200 Maternal Complications: None Provider Comments: Called to room 6 for delivery. Vertex at perineum. Patient instructed to push. live male in vertex DARBY at 0846. Apgars 7-9. 3-vessel cord. Spotaneous respirations and cry. Mouth and nose suctioned. Baby to mother's abdomen-care by nursery RN. Placenta, membranes, and cord expelled at 0852, Damon presentation. Perineum intact. FF at U-3. Hemostasis. Patient tolerated procedure well. LABOR SUMMARY EDC: 06/25/2020 00:00 No. Babies in Womb: 1 Attempted: No Labor Anesthesia: Epidural LABOR INFORMATION Reason for Induction: Pre-Eclampsia Onset of Labor: 06/16/2020 02:27 Complete Dilatation: 06/16/2020 06:25 Cervical Ripening Agents: Cervidil Oxytocin: Induction Group B Beta Strep: positive Antibiotics # of Doses: 6 Antibiotics Time of Last Dose: 06/16/2020 05:11 Name of Antibiotic Given: Penicillin Steroids Given: None Reason Steroids Not Administered: Not Applicable MEMBRANES Membranes Rupture Method: Artificial Rupture of Membranes: 06/15/2020 04:47 Length of Rupture (hr): 27.98 Amniotic Fluid Color: Clear Amniotic Fluid Amount: Moderate Amniotic Fluid Odor: Normal STAGES OF LABOR Stage 1 hr: 3 Stage 1 min: 58 Stage 2 hr: 2 Stage 2 min: 21 Stage 3 hr: 0 Stage 3 min: 6 Total Time in Labor hr: 6 Total Time in Labor min: 25 VAGINAL DELIVERY Episiotomy: None Laceration #1: None Laceration Extension #1: N/A Laceration Repair: Not Applicable Sponge Count Correct: N/A Sharps Count Correct: N/A CSECTION DELIVERY Primary Indication: N/A Secondary Indication: N/A CSection Incidence: N/A Labor: N/A Elective: N/A CSection Incision: N/A BABY A INFORMATION Delivery Date/Time: 06/16/2020 08:46 Method of Delivery: Vaginal Nurse Controlled Delivery: No Born in Route : No : N/A Forceps: N/A Vacuum Extraction: N/A Shoulder Dystocia : No PRESENTATION/POSITION BABY A Presentation: Cephalic Cephalic Presentation: Vertex Vertex Position: Left Occipital Anterior Breech Presentation: N/A PLACENTA INFORMATION BABY A Placenta Delivery Time : 06/16/2020 08:52 Placenta Method of Delivery: Spontaneous Placenta Status: Delivered SCORES BABY A Heart Rate 1 min: >100 bpm Resp Effort 1 min: Slow, Irregular Reflex Irritability 1 min: Cough or Sneeze or Pulls Away Muscle Tone 1 min: Active Motion Color 1 min: Blue/Pale Resuscitation Effort 1 min: Tactile Stimulation SCORE 1 MIN: 7 Heart Rate 5 min: >100 bpm Resp Effort 5 min: Good Cry Reflex Irritability 5 min: Cough or Sneeze or Pulls Away Muscle Tone 5 min: Active Motion Color 5 min: Body Point Place, Extremities Blue Resuscitation Effort 5 min: Tactile Stimulation SCORE 5 MIN: 9 INFORMATION BABY A Gestational Age at Delivery: 38.5 Gestational Status: Early Term- 37- 38.6 Weeks Infant Outcome : Liveborn Infant Condition : Stable Infant Sex: Male IDENTIFICATION BABY A Infant Verification Date/Time: 06/16/2020 09:08 ID Band Number: [id number] Mother's Name Verified: Yes RN Verifying : TMartin,RN Additional Verifying Personnel: DSrouse,US WEIGHT/LENGTH BABY A Infant Birthweight (gm): 3250 Infant Weight (lb): 7 Infant Weight (oz): 3 Infant Length (in): 19.50 Infant Length (cm): 49.53 CORD INFORMATION BABY A No. Cord Vessels: 3 Nuchal Cord : N/A Cord Blood Taken: Yes-For Eval (Mom's Blood Type - or O+) Infant Suction: None ASSESSMENT BABY A Complications: None Skin to Skin: Yes Infant Care By: HBarrett,RN BABY B INFORMATION : N/A SIGNATURES Assignment: Darwin Macario MD Signature: with User ID: [email or web address] : with User ID: [email or web address] : I personally evaluated and examined the patient in conjunction with the MLP and agree with the assessment, treatment plan and disposition.
--- NOTE | 2020-06-16 12:29 | Birth Certificate Data ---
Cert Data Datetime Report Generated by CPN: 06/16/2020 12:28 CERTIFICATE DATA 47a. Care: Yes (05/26/2020 12:03:Sobia Villarreal RN) 47b. Date of First Visit: 12/03/2019 00:00 (05/26/2020 12:03:Sobia Villarreal RN) 47c. Date of Last Visit: 06/09/2020 00:00 (05/26/2020 12:03:Sobia Villarreal RN) 47d. Number of Visits: 12 (05/26/2020 12:03:Sobia Villarreal RN) 48a. Number of Prev Live Births: 0 (05/26/2020 12:03:Sobia Vilalrreal RN) 48b. Now Livin (05/26/2020 12:03:Sobia Villarreal RN) 48c. Live Births Now : 0 (05/26/2020 12:03:QS system process) 48e. Losses: 2 (05/26/2020 12:03:Sobia Villarreal RN) 48f. Date of Last Preg Loss: 09/07/2019 00:00 (05/26/2020 12:03:Sobia Villarreal RN) RISK FACTORS IN THIS 49a. Diabetes: No (05/26/2020 12:03:Sobia Villarreal RN) 49b. Hypertension: No (05/26/2020 12:03:Sobia Villarreal RN) Type of Hypertension: Gestational (PIH, Pre-eclampsia) (05/26/2020 12:03:Sobia Villarreal RN) 49c. Previous Births: 0 (05/26/2020 12:03:FINN Babb) 49d. Stillborns: No (05/26/2020 12:03:Sobia Villarreal RN) 49d. IUGR: No (05/26/2020 12:03:Sobia Villarreal RN) 49e. Infertility Treatment: No (05/26/2020 12:03:Sobia Villarreal RN) 49f. Previous Cesareans: 0 (05/26/2020 12:03:FINN Babb) Mother's Height 50b. Height Inches: 63 (06/16/2020 11:47:QS system process) Mother's Weight 51a. Pre- Weight (lbs): 156 (05/26/2020 12:03:Sobia Villarreal RN) 51b. Weight at Delivery (lbs): 218 (06/16/2020 11:47:QS system process) 52. Dt Last Normal Menses Began: 09/19/2019 00:00 (05/26/2020 12:03:Sobia Villarreal RN) Infections Present/Treated 53a. Gonorrhea: No (05/26/2020 12:03:Sobia Villarreal RN) Results this Hospital Visit : Negative (05/26/2020 12:03:Sobia Villarreal RN) 53b. Syphilis: No (05/26/2020 12:03:Sobia Villarreal RN) Results this Hospital Visit: NONREACTIVE (06/14/2020 22:01:QS system process) 53c. Chlamydia: No (05/26/2020 12:03:Sobia Villarreal RN) Results this Hospital Visit: Negative (05/26/2020 12:03:Sobia Villarreal RN) 53d. Hepatitis B: No (05/26/2020 12:03:Sobia Villarreal RN) Results this Hospital Visit: Negative (05/26/2020 12:03:Sobia Villarreal RN) 53e. Hepatitis C: Negative (05/26/2020 12:03:Sobia Villarreal RN) 53h. Mother Tested for HBsAG: Yes (05/26/2020 12:03:Sobia Villarreal RN) 53i. Date Tested: 12/03/2019 00:00 (05/26/2020 12:03:Sobia Villarreal RN) 53j. Test Result: Negative (05/26/2020 12:03:Sobia Villarreal RN) Obstetric Procedures 54a, b, c. Obstetric Procedures: Ultrasound (05/26/2020 12:03:Sobia Villarreal RN) Cigarette Smoking Cigarette Smoking: Never Smoker. [id number] (05/26/2020 12:03:Sobia Villarreal RN) 55a. 3 Months Before Preg - Ci (05/26/2020 12:03:Sobia Villarreal RN) 55a. Packs: 0 (05/26/2020 12:03:Sobia Villarreal RN) 55b. 1st Trimester of Preg- Ci (05/26/2020 12:03:Sobia Villarreal RN) 55b. Packs: 0 (05/26/2020 12:03:Sobia Villarreal RN) 55c. 2nd Trimester of Preg- Ci (05/26/2020 12:03:Sobia Villarreal RN) 55c. Packs: 0 (05/26/2020 12:03:Sobia Villarreal RN) 55d. 3rd Trimester of Preg- Ci (05/26/2020 12:03:Sobia Villarreal RN) 55d. Packs: 0 (05/26/2020 12:03:Sobia Villarreal RN) Onset of Labor 56a. PROM >12 Hrs: 27.98 (05/26/2020 12:03:QS system process) 56b. Precipitous Labor <3 Hrs: 6 (05/26/2020 12:03:QS system process) 56c. Prolonged Labor > 20 Hrs: 6 (05/26/2020 12:03:QS system process) 57a. Induction of Labor: Induction (05/26/2020 12:03:Solange Jansen RN) 57a. Induction of Labor: Cervidil (06/15/2020 01:35:Sobia Villarreal RN) 57c. Non-Vertex Presentation A: Vertex (05/26/2020 12:03:Solange Jansen RN) 57d. Steroids - Lung Mat: None (05/26/2020 12:03:Solange Jansen RN) 57d. Steroids - Lung Mat: Not Applicable (05/26/2020 12:03:Solange Jansen RN) 57e. Antibiotics During Labor: 06/16/2020 05:11 (05/26/2020 12:03:Tim Munson RN) 57f. Mat [place] or Temp >100.4: 98.6 (05/26/2020 12:03:Solange Jansen RN) 57g. Moderate/Heavy Meconium: Clear (06/16/2020 04:47:Qing Montes RN) 57h. Intolerance of Labor: N/A (05/26/2020 12:03:Tim Munson RN) : N/A (05/26/2020 12:03:Tim Munson RN) 57i. Epidural/Spinal Anesthesia: Epidural (05/26/2020 12:03:Solange Jansen RN) Method of Delivery 58a. Forceps - Unsuccessful A: N/A (05/26/2020 12:03:Solange RICK Jansen) 58b. Vacuum - Unsuccessful A: N/A (05/26/2020 12:03:Solange RICK Jansen) 58c. Presentation at 58c. Presentation at - A : Vertex (05/26/2020 12:03:Solange Jansen RN) 58c. Presentation at - A : N/A (05/26/2020 12:03:Solange RICK Jansen) 58c. Presentation at - A : Cephalic (06/15/2020 01:35:Sobia Villarreal RN) Final Route and Method of Del 58d. Baby A Route/Delivery: Vaginal (06/16/2020 08:46:Solange Jansen RN) 58e. Trial of Labor Attempted: No (05/26/2020 12:03:Solange Jansen RN) 58e. Trial of Labor Attempted A: N/A (05/26/2020 12:03:Solange Jansen RN) 58e. Trial of Labor Attempted B: N/A (05/26/2020 12:03:Solange Jansen RN) Maternal Morbidity 59b. 3rd or 4th Degree Lacs: None (05/26/2020 12:03:Solange Jansen RN) Birthweight Baby A: 3250 (05/26/2020 12:03:Neelam Mcqueen RN) 60a. Pounds : 7 (05/26/2020 12:03:QS system process) 60b. Ounces: 3 (05/26/2020 12:03:QS system process) 61. GA at Delivery Baby A: 38.5 (05/26/2020 12:03:Solange RICK Jansen) : Early Term- 37- 38.6 Weeks (05/26/2020 12:03:QS system process) 62a. 5 Minute Baby A: 9 (05/26/2020 12:03:QS system process)
[2020-06-16] MEDS: PANTOPRAZOLE SODIUM 20 MG TABLET.DR PO SCH (12:39)
[2020-06-17] MEDS: IBUPROFEN 800 MG TABLET PO SCH ×3 (02:53→17:57)
[2020-06-17 07:19] LABS: HEMATOCRIT 29.2 % (36.0-47.0); MEAN CORPUSCULAR HEMOGLOBIN 29.2 pg (27.0-33.4); MEAN CORPUSCULAR HGB CONC 34.1 g/dL (32.0-36.0); MEAN CORPUSCULAR VOLUME 86 fl (80-97); PLATELET COUNT 163 10^3/uL (150-450); RED CELL DISTRIBUTION WIDTH 15.2 % (11.5-14.0); WHITE BLOOD COUNT 11.2 10^3/uL (4.0-10.5)
[2020-06-17] MEDS: PANTOPRAZOLE SODIUM 20 MG TABLET.DR PO SCH (10:01)
[2020-06-17] MEDS: FERROUS SULFATE 325 MG TABLET PO SCH ×2 (10:01→17:57)
[2020-06-17] MEDS: FAMOTIDINE 20 MG TABLET PO SCH ×2 (10:01→21:22)
[2020-06-17] MEDS: PRENATAL VITAMIN W DHA CAPSULE PO SCH (10:01)
[2020-06-17] MEDS: DOCUSATE SODIUM 100 MG CAPSULE PO SCH ×2 (10:02→17:56)
[2020-06-17] MEDS: SENNOSIDES/DOCUSATE 8.6-50 MG 1 EACH TABLET PO SCH (10:02)
[2020-06-17] MEDS: SERTRALINE HCL 50 MG TABLET PO SCH (10:02)
--- NOTE | 2020-06-17 10:12 | PDOC PROGRESS REPORT ---
Subjective-OB Progress Note for:: 06/17/20 Subjective: Doing well, no c/o, holding baby, feels good Physical Exam (OB) Vital Signs: Temp Pulse Resp BP Pulse Ox 97.8 F 77 18 155/91 H 99 06/17/20 08:00 06/17/20 08:00 06/17/20 08:00 06/17/20 08:00 06/17/20 08:00 Intake & Output 06/16/20 06/17/20 06/18/20 06:59 06:59 06:59 Intake Total 1000 Balance 1000 - PIH/Pre-Eclampsia DTR's: 2 + Clonus: Negative Headache: Absent Epigastric Pain: No Visual Changes: No - Maternal Morbidity 59. Maternal Morbidity (serious complications experinced by the mother associated with labor and delivery: None of the above - Lochia Lochia Amount: Scant < 10 ml Lochia Color: Rubra/Red - Abdomen Description: Soft Hernia Present: No Fundal Description: Firm, Midline Fundal Height: u/u - u/2 Objective-Diagnostic Laboratory: 06/17/20 06:39 06/14/20 22:09 06/17/20 06:39 WBC 11.2 H RBC 3.40 L Hgb 10.0 L Hct 29.2 L MCV 86 MCH 29.2 MCHC 34.1 RDW 15.2 H Plt Count 163 Assessment and Plan(PN) - Assessment and Plan (1) Mild pre-eclampsia, delivered, current hospitalization Is this a current diagnosis for this admission?: Yes (2) Encounter for induction of labor Is this a current diagnosis for this admission?: Yes (3) GBS (group B Streptococcus carrier), +RV culture, currently Is this a current diagnosis for this admission?: Yes - Time Spent with Patient Time with patient: Less than 15 minutes Medications reviewed and adjusted accordingly: Yes - Disposition Anticipated Discharge Disposition: Home, Self Care Anticipated Discharge Timeframe: within 24 hours
[2020-06-18] MEDS: IBUPROFEN 800 MG TABLET PO SCH ×2 (01:04→11:51)
--- NOTE | 2020-06-18 11:32 | PDOC PROGRESS REPORT ---
Subjective-OB Progress Note for:: 06/18/20 Subjective: sitting up and holding baby, ready to go home, feels good, no c/o, , will take BP at home Physical Exam (OB) Vital Signs: Temp Pulse Resp BP Pulse Ox 98.2 F 79 18 153/94 H 100 06/18/20 07:39 06/18/20 07:39 06/18/20 07:39 06/18/20 07:39 06/18/20 07:39 - PIH/Pre-Eclampsia DTR's: 2 + Clonus: Negative Headache: Absent Epigastric Pain: No Visual Changes: No - Maternal Morbidity 59. Maternal Morbidity (serious complications experinced by the mother associated with labor and delivery: None of the above - Lochia Lochia Amount: Scant < 10 ml Lochia Color: Rubra/Red - Abdomen Description: Soft Hernia Present: No Fundal Description: Firm, Midline Fundal Height: u/u - u/2 Objective-Diagnostic Laboratory: 06/17/20 06:39 06/14/20 22:09 Assessment and Plan(PN) - Assessment and Plan (1) Mild pre-eclampsia, delivered, current hospitalization Is this a current diagnosis for this admission?: Yes (2) Encounter for induction of labor Is this a current diagnosis for this admission?: Yes (3) GBS (group B Streptococcus carrier), +RV culture, currently Is this a current diagnosis for this admission?: Yes - Time Spent with Patient Time with patient: Less than 15 minutes Medications reviewed and adjusted accordingly: Yes - Disposition Anticipated Discharge Disposition: Home, Self Care Anticipated Discharge Timeframe: within 24 hours
--- NOTE | 2020-06-18 11:38 | PDOC DISCHARGE SUMMARY ---
Impression - Admit/DC Date/PCP Admission Date/Primary Care Provider: 06/15/20 00:37 ALEXEI SOLORZANO MD Discharge Date: 06/18/20 - Discharge Diagnosis (1) Mild pre-eclampsia, delivered, current hospitalization Is this a current diagnosis for this admission?: Yes (2) Encounter for induction of labor Is this a current diagnosis for this admission?: Yes (3) GBS (group B Streptococcus carrier), +RV culture, currently Is this a current diagnosis for this admission?: Yes - Additional Information Resuscitation Status: Full Code Discharge Diet: As Tolerated, Regular Referrals: ALEXEI SOLORZANO MD [Primary Care Provider] - Home Medications: Pnv No.121/Iron/Folic Acid [ Multivitamin Tablet] 1 each PO DAILY 05/26/20 Pantoprazole Sodium [Protonix [address] Tablet] 20 mg PO DAILY 06/14/20 Sertraline HCl [Zoloft 50 mg Tablet] 100 mg PO DAILY tablet 06/18/20 HPI Gestational Age: 38.5 Reason(s) for Admission: Induction of Labor, Gestional Diabetes, Advanced Maternal Age, Group B Strep Positive Procedures: NST, Ultrasound Intrapartum Procedure(s): Spontaneous Vaginal Delivery Complication(s): Laceration-Vaginal Hospital Course Hospital Course: routine 59. Maternal Morbidity (serious complications experinced by the mother associated with labor and delivery: None of the above Results Laboratory Results: WBC 11.2 10^3/uL (4.0-10.5) H 06/17/20 06:39 RBC 3.40 10^6/uL (3.72-5.28) L 06/17/20 06:39 Hgb 10.0 g/dL (12.0-15.5) L 06/17/20 06:39 Hct 29.2 % (36.0-47.0) L 06/17/20 06:39 MCV 86 fl (80-97) 06/17/20 06:39 MCH 29.2 pg (27.0-33.4) 06/17/20 06:39 MCHC 34.1 g/dL (32.0-36.0) 06/17/20 06:39 RDW 15.2 % (11.5-14.0) H 06/17/20 06:39 Plt Count 163 10^3/uL (150-450) 06/17/20 06:39 Lymph % (Auto) 19.4 % (13-45) 06/14/20 22:09 [place] % (Auto) 6.3 % (3-13) 06/14/20 22:09 Eos % (Auto) 0.2 % (0-6) 06/14/20 22:09 Baso % (Auto) 0.3 % (0-2) 06/14/20 22:09 Absolute Neuts (auto) 7.3 10^3/uL (1.7-8.2) 06/14/20 22:09 Absolute Lymphs (auto) 1.9 10^3/uL (0.5-4.7) 06/14/20 22:09 Absolute Monos (auto) 0.6 10^3/uL (0.1-1.4) 06/14/20 22:09 Absolute Eos (auto) 0.0 10^3/uL (0.0-0.6) 06/14/20 22:09 Absolute Basos (auto) 0.0 10^3/uL (0.0-0.2) 06/14/20 22:09 Seg Neutrophils % 73.8 % (42-78) 06/14/20 22:09 Sodium 135.5 mmol/L (137-145) L 06/14/20 22:09 Potassium 3.9 mmol/L (3.6-5.0) 06/14/20 22:09 Chloride 106 mmol/L (98-107) 06/14/20 22:09 Carbon Dioxide 20 mmol/L (22-30) L 06/14/20 22:09 Anion Gap 10 (5-19) 06/14/20 22:09 BUN 10 mg/dL (7-20) 06/14/20 22:09 Creatinine 0.74 mg/dL (0.52-1.25) 06/14/20 22:09 Est GFR ( Amer) > 60 (>60) 06/14/20 22:09 Est GFR (MDRD) Non-Af > 60 (>60) 06/14/20 22:09 Glucose 118 mg/dL (75-110) H 06/14/20 22:09 Uric Acid 5.4 mg/dL (2.5-6.2) 06/14/20 22:09 Calcium 9.3 mg/dL (8.4-10.2) 06/14/20 22:09 Total Bilirubin 0.2 mg/dL (0.2-1.3) 06/14/20 22:09 Direct Bilirubin 0.1 mg/dL (0.0-0.4) 06/14/20 22:09 Neonat Total Bilirubin Not Reportable 06/14/20 22:09 Neonat Direct Bilirubin Not Reportable 06/14/20 22:09 Neonat Indirect Bili Not Reportable 06/14/20 22:09 AST 20 U/L (14-36) 06/14/20 22:09 ALT 12 U/L (<35) 06/14/20 22:09 Alkaline Phosphatase 113 U/L (38-126) 06/14/20 22:09 Lactate Dehydrogenase 182 U/L (120-246) 06/14/20 22:09 Total Protein 6.0 g/dL (6.3-8.2) L 06/14/20 22:09 Albumin 3.3 g/dL (3.5-5.0) L 06/14/20 22:09 Urine Color YELLOW 06/14/20 21:22 Urine Appearance SLIGHTLY-CLOUDY 06/14/20 21:22 Urine pH 6.0 (5.0-9.0) 06/14/20 21:22 Ur Specific [place] 1.013 06/14/20 21:22 Urine Protein >=500 mg/dL (NEGATIVE) H 06/14/20 21:22 Urine Glucose (UA) NEGATIVE mg/dL (NEGATIVE) 06/14/20 21:22 Urine Ketones NEGATIVE mg/dL (NEGATIVE) 06/14/20 21:22 Urine Blood NEGATIVE (NEGATIVE) 06/14/20 21:22 Urine Nitrite NEGATIVE (NEGATIVE) 06/14/20 21:22 Urine Bilirubin NEGATIVE (NEGATIVE) 06/14/20 21:22 Urine Urobilinogen NEGATIVE mg/dL (<2.0) 06/14/20 21:22 Ur Leukocyte Esterase TRACE (NEGATIVE) H 06/14/20 21:22 Urine WBC (Auto) 15 /HPF 06/14/20 21:22 Urine RBC (Auto) 1 /HPF 06/14/20 21:22 Urine Bacteria (Auto) 1+ /HPF 06/14/20 21:22 Squamous Epi Cells Auto <1 /HPF 06/14/20 21:22 Urine Mucus (Auto) RARE /LPF 06/14/20 21:22 Urine Creatinine 87.8 mg/dL (16-327) 06/14/20 21:22 Protein/Creatinin Ratio 6.2 mg/mg (0.0-0.2) H 06/14/20 21:22 Urine Total Protein 540.8 mg/dL (<12) H 06/14/20 21:22 Urine Ascorbic Acid NEGATIVE (NEGATIVE) 06/14/20 21:22 Urine Opiates Screen NEGATIVE 06/14/20 21:22 Urine Methadone Screen NEGATIVE 06/14/20 21:22 Ur Barbiturates Screen NEGATIVE 06/14/20 21:22 Ur Phencyclidine Scrn NEGATIVE 06/14/20 21:22 Ur Amphetamines Screen NEGATIVE 06/14/20 21:22 U Benzodiazepines Scrn NEGATIVE 06/14/20 21:22 Urine Cocaine Screen NEGATIVE 06/14/20 21:22 U Marijuana (THC) Screen NEGATIVE 06/14/20 21:22 RPR NONREACTIVE (NONREACTIVE) 06/14/20 22:01 Blood Type O POSITIVE 06/14/20 22:01 Antibody Screen NEGATIVE 06/14/20 22:01 Plan Health Concerns: BP Plan of Treatment: take BP at home, rev S&S to report, WHA in 1 week Goals: no complications Time Spent: Less than 30 Minutes
[2020-06-18] MEDS: DOCUSATE SODIUM 100 MG CAPSULE PO SCH (11:50)
[2020-06-18] MEDS: FERROUS SULFATE 325 MG TABLET PO SCH (11:51)
[2020-06-18] MEDS: PRENATAL VITAMIN W DHA CAPSULE PO SCH (11:51)
[2020-06-18] MEDS: FAMOTIDINE 20 MG TABLET PO SCH (11:51)
[2020-06-18] MEDS: SENNOSIDES/DOCUSATE 8.6-50 MG 1 EACH TABLET PO SCH (11:51)
[2020-06-18] MEDS: SERTRALINE HCL 50 MG TABLET PO SCH (11:52)
[2020-06-18] MEDS: PANTOPRAZOLE SODIUM 20 MG TABLET.DR PO SCH (11:52)
[2020-06-18 12:25] VITALS: BP 132/75
== END 2020-06-18 14:00 | disposition home or self-care (01) | DRG 807 ==
LOC: LC 21:17 → LR 06-15 00:37 → 2S 06-16 11:30
PROVIDERS: ADMIT Obstetrics & Gynecology Gynecology; ATTEND Obstetrics & Gynecology Gynecology
PROC: 10E0XZZ Delivery of Products of Conception, External Approach (ICD-10-PCS; principal; 2020-06-15)
DX: O14.04 Mild to moderate pre-eclampsia, complicating childbirth (principal); Z37.0 Single live birth; O99.824 Streptococcus B carrier state complicating childbirth; Z3A.38 38 weeks gestation of pregnancy
CPT/HCPCS: 1967; 36415; 80053; 80307; 81001; 82570; 83615; 84156; 84550; 85025; 85027; 86592; 86850; 86900; 86901; 88307; 94760; J2540; J2590; J2795; J3010; J3490; J7060